=== PATIENT | female | born 1940 | race Caucasian/White ===

== ENCOUNTER 2017-06-17 09:37 | Inpatient (IN) | payer MEDICARE, OTHER ==
[~2017-06-17] VITALS: Ht 167.6 cm; Wt 56.6 kg
[~2017-06-17 09:37] MED LIST: COLO500C PO; ESTR2TAB PO; LEVO100T5 PO; MELA10TA PO; METF500T4 PO; PROG100C16 PO; TRAM50TA2 PO
[2017-06-17] MEDS ORDERED: VANCOMYCIN PMX 1GM/200ML 200 ML IV STA (09:39)
[2017-06-17] MEDS: D5%-0.45% NACL 1,000 ML IV SCH ×2 (09:54→19:14)
[2017-06-17] MEDS ORDERED: DIPHENHYDRAMINE 50 MG CAPSULE PO PRN (10:00)
[2017-06-17] MEDS ORDERED: LORazepam 2 MG/ML, 1ML IVPush PRN (10:00)
[2017-06-17] MEDS ORDERED: TRANEXAMIC ACID 100 MG/ML, 10ML IVPB ONE (10:00)
[2017-06-17] MEDS ORDERED: morphine SULFATE 10 MG/ML, 1ML IVPush PRN (10:00)
[2017-06-17] MEDS ORDERED: ZOLPIDEM 5MG TABLET PO PRN (10:00)
[2017-06-17] MEDS ORDERED: ACETAMINOPHEN 325 MG TABLET PO PRN ×2 (10:00→11:30)
[2017-06-17] MEDS ORDERED: LACTATED RINGERS 1,000 ML IV SCH (10:06)
[2017-06-17] MEDS ORDERED: hydrALAzine 20 MG/ML, 1ML ONE (10:25)
[2017-06-17] MEDS ORDERED: FENTANYL PF 250 MCG/5ML ONE (10:26)
[2017-06-17] MEDS ORDERED: ONDANSETRON 2MG/ML, 2ML ONE ×2 (10:56→12:56)
[2017-06-17] MEDS ORDERED: SUCCINYLCHOLINE 20 MG/ML, 10ML ONE (10:56)
[2017-06-17] MEDS ORDERED: NEOSTIGMINE 1 MG/ML, 10ML ONE (10:56)
[2017-06-17] MEDS ORDERED: DEXAMETHASONE 4 MG/ML, 1ML ONE (10:56)
[2017-06-17] MEDS ORDERED: METOPROLOL 1 MG/ML, 5ML ONE (10:56)
[2017-06-17] MEDS ORDERED: CEFAZOLIN 1,000 MG ONE (10:56)
[2017-06-17] MEDS ORDERED: GLYCOPYRROLATE 0.2MG/1ML, 5ML ONE (10:56)
[2017-06-17] MEDS ORDERED: ROCURONIUM 10 MG/ML ONE (10:56)
[2017-06-17] MEDS ORDERED: PROPOFOL 10 MG/ML, 20ML ONE (10:56)
[2017-06-17] MEDS ORDERED: HYDROmorphone 1 MG/ML, 1ML ONE ×2 (11:09→12:02)
[2017-06-17] MEDS ORDERED: hydrALAzine 20 MG/ML, 1ML IV PRN (11:30)
[2017-06-17] MEDS ORDERED: MIDAZOLAM 1 MG/ML, 2ML IV PRN (11:30)
[2017-06-17] MEDS ORDERED: METOPROLOL 1 MG/ML, 5ML IV PRN (11:30)
[2017-06-17] MEDS ORDERED: PROMETHAZINE 25 MG/ML, 1ML IV PRN (11:30)
[2017-06-17] MEDS ORDERED: ALBUTEROL SULFATE 2.5 MG/3 ML NPPB PRN (11:30)
[2017-06-17] MEDS ORDERED: MEPERIDINE/PF 25MG/0.5ML IVPush PRN (11:30)
[2017-06-17] MEDS ORDERED: OXYcodone 5 MG/5 ML ORAL.SOL UDC PO PRN (11:30)
[2017-06-17] MEDS ORDERED: EPHEDRINE 50 MG/ML, 1ML ONE (11:42)
[2017-06-17] MEDS ORDERED: FENTANYL PF 100 MCG/2ML ONE (12:02)
[2017-06-17] MEDS: FENTANYL PF 100 MCG/2ML IV PRN ×2 (12:19→12:30)
[2017-06-17] MEDS: HYDROmorphone 1 MG/ML, 1ML IV PRN ×3 (12:25→12:45)
[2017-06-17] MEDS ORDERED: OXYcodone 5 MG/5 ML ORAL.SOL UDC ONE (12:32)
[2017-06-17] MEDS ORDERED: ACETAMINOPHEN 650 MG/20.3 ML UDC ONE (12:32)
[2017-06-17] MEDS: ONDANSETRON 2MG/ML, 2ML IVPush PRN (12:58)
[2017-06-17] MEDS ORDERED: TRANEXAMIC ACID 1,000 MG in SODIUM CHLORIDE 0.9% 100 ML IV ONE (14:30)
[2017-06-17] MEDS ORDERED: PROMETHAZINE 25 MG/ML, 1ML IM ONE (15:30)
[2017-06-17] MEDS: metFORMIN 500 MG TABLET PO SCH (17:55)
[2017-06-17] MEDS: CEFAZOLIN PMX 1GM/50ML 50 ML IVPB SCH (18:48)
[2017-06-17 19:18] VITALS: BP 127/70
[2017-06-17] MEDS ORDERED: MELATONIN 5 MG TABLET PO SCH (21:00)
[2017-06-17] MEDS: OXYcodone/APAP 7.5/325MG TABLET PO PRN (21:54)
[2017-06-18] VITALS: BP 122/54
[2017-06-18] MEDS: D5%-0.45% NACL 1,000 ML IV SCH ×4 (03:00→13:00)
[2017-06-18] MEDS: CEFAZOLIN PMX 1GM/50ML 50 ML IVPB SCH ×3 (03:28→14:11)
[2017-06-18] MEDS: OXYcodone/APAP 7.5/325MG TABLET PO PRN ×3 (04:42→14:11)
[2017-06-18] MEDS: ONDANSETRON 2MG/ML, 2ML IVPush PRN (04:53)
[2017-06-18] MEDS ORDERED: LEVOTHYROXINE 100 MCG TABLET PO SCH (06:00)
[2017-06-18 08:35] VITALS: BP 135/64
[2017-06-18] MEDS ORDERED: ESTRADIOL 2 MG TABLET PO SCH (09:00)
[2017-06-18] MEDS ORDERED: PROGESTERONE 100 MG CAPSULE PO SCH (09:00)
[2017-06-18] MEDS ORDERED: VANCOMYCIN PMX 1GM/200ML 200 ML IVPB ONE (10:00)
[2017-06-18] MEDS: metFORMIN 500 MG TABLET PO SCH (10:43)
[2017-06-18] MEDS ORDERED: OXYC-302 PO (14:56)
[2017-06-18 16:11] VITALS: BP 161/82
[2017-06-18] MEDS ORDERED: ASPIRIN 325 MG TABLET EC PO SCH (17:00)
[2017-06-18] MEDS ORDERED: DOCUSATE 100 MG CAPSULE PO SCH (21:00)
== END 2017-06-18 17:36 | disposition home or self-care (01) | DRG 470 ==
LOC: ORIP 09:37 → 4NOR 13:55
PROVIDERS: ADMIT Orthopaedic Surgery; ATTEND Orthopaedic Surgery
PROC: 0SR90JZ Replacement of Right Hip Joint with Synthetic Substitute, Open Approach (ICD-10-PCS; principal; 2017-06-17 11:30)
DX: M16.11 Unilateral primary osteoarthritis, right hip (principal); E03.9 Hypothyroidism, unspecified
CPT/HCPCS: 36415; 82962; 85018; 86850; 86900; C1713; J0171; J0690; J1100; J1170; J1885; J2405; J2550; J2704; J2710; J2795; J3010; J3370; J3490; C1776; J0330; J0360; J7120

== ENCOUNTER 2018-02-05 14:17 | Inpatient (IN) | payer MEDICARE, OTHER ==
[~2018-02-05] VITALS: Ht 167.6 cm; Wt 68.4 kg
[~2018-02-05 14:17] MED LIST changes: +OXYC-302 PO
[2018-02-05] MEDS ORDERED: ALTEPLASE 1 MG/ML ONE (14:40)
[2018-02-05 14:59] LABS: BASOPHILS # (AUTO) 0.03 x10^3/uL (0-0.1); BASOPHILS % (AUTO) 0 % (0-1); EOSINOPHILS # (AUTO) 0.19 x10^3/uL (0-0.4); EOSINOPHILS % (AUTO) 2 % (1-7); LYMPHOCYTES # (AUTO) 1.27 x10^3/uL (1-3.4); LYMPHOCYTES % (AUTO) 11 % (22-44); MD NO; MEAN PLATELET VOLUME 7.8 fL (7.4-10.4); MONOCYTES # (AUTO) 0.94 x10^3/uL (0.2-0.8); MONOCYTES % (AUTO) 8 % (2-9); NEUTROPHILS # (AUTO) 8.91 x10^3/uL (1.8-6.8); NEUTROPHILS % (AUTO) 79 % (42-75); PLATELET COUNT 394 x10^3/uL (130-400)
[2018-02-05] MEDS ORDERED: OMNIPAQUE 350 MG/ML, 100ML BOTTLE ONE (15:18)
[2018-02-05 15:24] LABS: INTERNATIONAL NORMALIZED RATIO 1.04 (0.93-1.1); PROTHROMBIN TIME 10.7 Seconds (9.6-11.5)
[2018-02-05] MEDS ORDERED: ALTEPLASE IV ONE ×2 (15:30)
[2018-02-05] MEDS ORDERED: SODIUM CHLORIDE FLUSH 10ML SYR IVF PRN (15:30)
[2018-02-05] MEDS ORDERED: LABETALOL 5MG/ML, 20ML ONE (16:37)
[2018-02-05] MEDS ORDERED: LABETALOL 5MG/ML, 20ML IVPush PRN (17:00)
[2018-02-05] MEDS ORDERED: PLEASE ENTER HEIGHT AND WEIGHT MC SCH (17:00)
[2018-02-05] MEDS ORDERED: ACETAMINOPHEN 650 MG/20.3 ML UDC PO PRN (17:30)
[2018-02-05] MEDS ORDERED: DOCUSATE 100 MG CAPSULE PO PRN (17:30)
[2018-02-05] MEDS ORDERED: BISACODYL 10 MG SUPP PR PRN (17:30)
[2018-02-05] MEDS ORDERED: POLYETHYLENE GLYCOL 17 GM PACKET PO PRN (17:30)
[2018-02-05] MEDS ORDERED: ASPI-496 PO (17:55)
[2018-02-05 17:57] VITALS: BP 176/91
[2018-02-05 18:07] VITALS: BP 161/73
[2018-02-05] MEDS: PLEASE ENTER HEIGHT AND WEIGHT MC SCH ×3 (19:00→22:48)
[2018-02-05] MEDS: ATORVASTATIN 80 MG TABLET PO SCH (22:47)
[2018-02-06] MEDS: PLEASE ENTER HEIGHT AND WEIGHT MC SCH ×3 (02:46→07:35)
[2018-02-06 04:00] VITALS: BP 144/61
[2018-02-06 04:33] LABS: BASOPHILS # (AUTO) 0.02 x10^3/uL (0-0.1); BASOPHILS % (AUTO) 0 % (0-1); EOSINOPHILS # (AUTO) 0.28 x10^3/uL (0-0.4); EOSINOPHILS % (AUTO) 2 % (1-7); LYMPHOCYTES # (AUTO) 1.42 x10^3/uL (1-3.4); LYMPHOCYTES % (AUTO) 12 % (22-44); MD NO; MEAN CORPUSCULAR HEMOGLOBIN 25.2 pg (27.0-34.8); MEAN CORPUSCULAR HGB CONC 31.9 g/dL (32.4-35.8); MEAN CORPUSCULAR VOLUME 79.1 fL (80-100); MEAN PLATELET VOLUME 7.9 fL (7.4-10.4); MONOCYTES # (AUTO) 1.16 x10^3/uL (0.2-0.8); MONOCYTES % (AUTO) 10 % (2-9); NEUTROPHILS # (AUTO) 8.75 x10^3/uL (1.8-6.8); NEUTROPHILS % (AUTO) 75 % (42-75); PLATELET COUNT 366 x10^3/uL (130-400); RED BLOOD COUNT 3.88 x10^6/uL (3.82-5.3); RED CELL DISTRIBUTION WIDTH 16.5 % (9.6-15.2)
[2018-02-06 04:43] LABS: ALBUMIN 3.2 g/dL (3.4-5.0); ANION GAP 8 mmol/L (5-15); CALCIUM 8.5 mg/dL (8.5-10.1); CHLORIDE 107 mmol/L (98-107)
[2018-02-06 04:49] LABS: ALANINE AMINOTRANSFERASE 16 U/L (12-78); ALKALINE PHOSPHATASE 68 U/L (45-117); BILIRUBIN,TOTAL 0.3 mg/dL (0.2-1.0); CHOL/HDL RATIO 5.5; CHOLESTEROL, TOTAL 208 mg/dL (140-239); CREATININE 0.98 mg/dL (0.55-1.02); HDL CHOL % 18 % (28-40); HDL CHOLESTEROL (DIRECT) 38 mg/dL (40-60); LDL CHOLESTEROL,CALCULATED 125 mg/dL (54-169); LDL/HDL RATIO 3.3 (0.5-3.0); TOTAL PROTEIN 6.6 g/dL (6.4-8.2); TRIGLYCERIDES 226 mg/dL (50-200); VLDL CHOLESTEROL 45 mg/dL (0-25)
[2018-02-06] MEDS: LEVOTHYROXINE 100 MCG TABLET PO SCH (06:04)
[2018-02-06] MEDS: ACETAMINOPHEN 325 MG TABLET PO PRN (10:15)
[2018-02-06] MEDS ORDERED: ONDANSETRON 2MG/ML, 2ML ONE (11:04)
[2018-02-06] MEDS: ONDANSETRON 2MG/ML, 2ML IVPush PRN ×2 (11:08→18:57)
[2018-02-06] MEDS: ATORVASTATIN 80 MG TABLET PO SCH (20:25)
[2018-02-07 04:00] VITALS: BP 155/82
[2018-02-07] MEDS: LEVOTHYROXINE 100 MCG TABLET PO SCH (05:31)
[2018-02-07 06:16] LABS: MEAN CORPUSCULAR VOLUME 78.1 fL (80-100); RED BLOOD COUNT 3.95 x10^6/uL (3.82-5.3)
[2018-02-07 06:17] LABS: RED CELL DISTRIBUTION WIDTH 16.2 % (9.6-15.2)
[2018-02-07 06:19] LABS: CHLORIDE 105 mmol/L (98-107)
[2018-02-07 07:06] LABS: BASOPHILS # (AUTO) 0.01 x10^3/uL (0-0.1); BASOPHILS % (AUTO) 0 % (0-1); EOSINOPHILS # (AUTO) 0.04 x10^3/uL (0-0.4); EOSINOPHILS % (AUTO) 0 % (1-7); LYMPHOCYTES # (AUTO) 1.21 x10^3/uL (1-3.4); LYMPHOCYTES % (AUTO) 8 % (22-44); MD NO; MEAN CORPUSCULAR HEMOGLOBIN 24.9 pg (27.0-34.8); MEAN CORPUSCULAR HGB CONC 31.6 g/dL (32.4-35.8); MEAN CORPUSCULAR VOLUME 78.7 fL (80-100); MEAN PLATELET VOLUME 7.9 fL (7.4-10.4); MONOCYTES # (AUTO) 1.35 x10^3/uL (0.2-0.8); MONOCYTES % (AUTO) 9 % (2-9); NEUTROPHILS # (AUTO) 13.03 x10^3/uL (1.8-6.8); NEUTROPHILS % (AUTO) 83 % (42-75); PLATELET COUNT 392 x10^3/uL (130-400); RED BLOOD COUNT 4.11 x10^6/uL (3.82-5.3); RED CELL DISTRIBUTION WIDTH 16.4 % (9.6-15.2)
[2018-02-07 07:32] LABS: ALANINE AMINOTRANSFERASE 14 U/L (12-78); ALBUMIN 3.1 g/dL (3.4-5.0); ALKALINE PHOSPHATASE 74 U/L (45-117); BILIRUBIN,TOTAL 0.7 mg/dL (0.2-1.0); CALCIUM 8.4 mg/dL (8.5-10.1); CREATININE 0.96 mg/dL (0.55-1.02); TOTAL PROTEIN 7.1 g/dL (6.4-8.2)
[2018-02-07 08:38] LABS: ANION GAP 11 mmol/L (5-15)
[2018-02-07 08:51] LABS: FOLATE LEVEL 10.1 ng/mL (3.1-17.5); THYROID STIMULATING HORMONE 0.85 mIU/L (0.358-3.740)
[2018-02-07 09:05] VITALS: BP 149/86
[2018-02-07] MEDS: CLOPIDOGREL 75 MG TABLET PO SCH (12:06)
[2018-02-07] MEDS ORDERED: LIDOCAINE 2%, 20ML ONE (12:52)
[2018-02-07 19:58] VITALS: BP 185/89
[2018-02-07] MEDS: ATORVASTATIN 80 MG TABLET PO SCH (20:15)
[2018-02-07 20:17] LABS: HEMOGLOBIN A1C 6.6 % (4.2-6.3)
[2018-02-07 21:45] VITALS: BP 169/80
[2018-02-08 00:14] VITALS: BP 173/76
[2018-02-08] MEDS: ACETAMINOPHEN 325 MG TABLET PO PRN (00:19)
[2018-02-08] MEDS: ONDANSETRON 2MG/ML, 2ML IVPush PRN (00:37)
[2018-02-08] MEDS: TEMAZEPAM 15 MG CAPSULE PO PRN (01:16)
[2018-02-08 05:25] LABS: MEAN CORPUSCULAR HEMOGLOBIN 24.8 pg (27.0-34.8); MEAN CORPUSCULAR HGB CONC 31.5 g/dL (32.4-35.8); MEAN CORPUSCULAR VOLUME 78.9 fL (80-100); MEAN PLATELET VOLUME 7.6 fL (7.4-10.4); PLATELET COUNT 394 x10^3/uL (130-400); RED BLOOD COUNT 3.93 x10^6/uL (3.82-5.3); RED CELL DISTRIBUTION WIDTH 16.3 % (9.6-15.2)
[2018-02-08] MEDS: LEVOTHYROXINE 100 MCG TABLET PO SCH (05:30)
[2018-02-08 05:38] LABS: ALBUMIN 2.9 g/dL (3.4-5.0); ANION GAP 6 mmol/L (5-15); CHLORIDE 102 mmol/L (98-107); CREATININE 0.96 mg/dL (0.55-1.02)
[2018-02-08 06:04] LABS: BASOPHILS # (AUTO) 0.07 x10^3/uL (0-0.1); BASOPHILS % (AUTO) 0 % (0-1); EOSINOPHILS # (AUTO) 0.01 x10^3/uL (0-0.4); EOSINOPHILS % (AUTO) 0 % (1-7); LYMPHOCYTES # (AUTO) 1.17 x10^3/uL (1-3.4); LYMPHOCYTES % (AUTO) 6 % (22-44); MD SCAN; MONOCYTES # (AUTO) 1.72 x10^3/uL (0.2-0.8); MONOCYTES % (AUTO) 9 % (2-9); NEUTROPHILS # (AUTO) 15.74 x10^3/uL (1.8-6.8); NEUTROPHILS % (AUTO) 84 % (42-75)
[2018-02-08 08:06] VITALS: BP 168/76
[2018-02-08] MEDS ORDERED: DOXYCYCLINE 100MG TABLET PO SCH (10:00)
[2018-02-08] MEDS ORDERED: AMPICILLIN/SULBACTAM 3 GM in SODIUM CHLORIDE 0.9% 100 ML IV SCH (10:00)
[2018-02-08] MEDS: INDOMETHACIN 25 MG CAPSULE PO SCH ×3 (13:20→21:09)
[2018-02-08] MEDS: CLOPIDOGREL 75 MG TABLET PO SCH (13:20)
[2018-02-08 14:09] VITALS: BP 160/71
[2018-02-08 14:57] LABS: MICROSCOPIC AUTO
[2018-02-08 15:02] LABS: CULTURE INDICATED? YES
[2018-02-08] MEDS: OMEPRAZOLE 20 MG CAPSULE.DR PO SCH (16:29)
[2018-02-08] MEDS: AMLODIPINE 5 MG TABLET PO SCH ×2 (16:30→21:09)
[2018-02-08] MEDS: IRON SUCROSE COMPLEX 100MG/5ML IV SCH (16:30)
[2018-02-08 19:33] VITALS: BP 165/71
[2018-02-08 19:46] VITALS: BP 148/85
[2018-02-08] MEDS: ATORVASTATIN 80 MG TABLET PO SCH (21:09)
[2018-02-08] MEDS: CEFTRIAXONE PMX 1GM/50ML 50 ML IV SCH (21:46)
[2018-02-09 00:47] VITALS: BP 155/75
[2018-02-09] MEDS: LEVOTHYROXINE 100 MCG TABLET PO SCH (05:44)
[2018-02-09 06:55] VITALS: BP 155/74
[2018-02-09] MEDS: AMLODIPINE 5 MG TABLET PO SCH ×2 (08:04→21:29)
[2018-02-09] MEDS: INDOMETHACIN 25 MG CAPSULE PO SCH ×3 (08:04→21:29)
[2018-02-09] MEDS: OMEPRAZOLE 20 MG CAPSULE.DR PO SCH (08:05)
[2018-02-09] MEDS: CLOPIDOGREL 75 MG TABLET PO SCH (08:05)
[2018-02-09] MEDS: IRON SUCROSE COMPLEX 100MG/5ML IV SCH (08:05)
[2018-02-09 14:10] VITALS: BP 165/88
[2018-02-09 15:59] LABS: ALBUMIN 2.9 g/dL (3.4-5.0); ANION GAP 7 mmol/L (5-15); CALCIUM 8.4 mg/dL (8.5-10.1); CHLORIDE 101 mmol/L (98-107); CREATININE 0.93 mg/dL (0.55-1.02)
[2018-02-09 16:00] LABS: BASOPHILS # (AUTO) 0.02 x10^3/uL (0-0.1); BASOPHILS % (AUTO) 0 % (0-1); EOSINOPHILS # (AUTO) 0.22 x10^3/uL (0-0.4); EOSINOPHILS % (AUTO) 2 % (1-7); LYMPHOCYTES # (AUTO) 1.07 x10^3/uL (1-3.4); LYMPHOCYTES % (AUTO) 8 % (22-44); MD NO; MEAN CORPUSCULAR HEMOGLOBIN 24.1 pg (27.0-34.8); MEAN CORPUSCULAR VOLUME 77.9 fL (80-100); MEAN PLATELET VOLUME 7.7 fL (7.4-10.4); MONOCYTES # (AUTO) 1.11 x10^3/uL (0.2-0.8); MONOCYTES % (AUTO) 9 % (2-9); NEUTROPHILS # (AUTO) 10.38 x10^3/uL (1.8-6.8); NEUTROPHILS % (AUTO) 81 % (42-75); PLATELET COUNT 418 x10^3/uL (130-400); RED BLOOD COUNT 3.99 x10^6/uL (3.82-5.3); RED CELL DISTRIBUTION WIDTH 16.1 % (9.6-15.2)
[2018-02-09] MEDS: ONDANSETRON 2MG/ML, 2ML IVPush PRN (16:58)
[2018-02-09 18:40] VITALS: BP 168/81
[2018-02-09] MEDS: TEMAZEPAM 15 MG CAPSULE PO PRN (21:29)
[2018-02-09] MEDS: ATORVASTATIN 80 MG TABLET PO SCH (21:29)
[2018-02-09] MEDS: CEFTRIAXONE PMX 1GM/50ML 50 ML IV SCH (21:29)
[2018-02-10 02:04] VITALS: BP 133/71
[2018-02-10 05:15] LABS: BASOPHILS # (AUTO) 0.05 x10^3/uL (0-0.1); BASOPHILS % (AUTO) 1 % (0-1); EOSINOPHILS # (AUTO) 0.38 x10^3/uL (0-0.4); EOSINOPHILS % (AUTO) 3 % (1-7); LYMPHOCYTES # (AUTO) 1.04 x10^3/uL (1-3.4); LYMPHOCYTES % (AUTO) 9 % (22-44); MD NO; MEAN CORPUSCULAR HGB CONC 31.5 g/dL (32.4-35.8); MEAN CORPUSCULAR VOLUME 79.1 fL (80-100); MEAN PLATELET VOLUME 7.9 fL (7.4-10.4); MONOCYTES # (AUTO) 1.44 x10^3/uL (0.2-0.8); MONOCYTES % (AUTO) 12 % (2-9); NEUTROPHILS # (AUTO) 8.89 x10^3/uL (1.8-6.8); NEUTROPHILS % (AUTO) 75 % (42-75); PLATELET COUNT 403 x10^3/uL (130-400); RED BLOOD COUNT 3.84 x10^6/uL (3.82-5.3); RED CELL DISTRIBUTION WIDTH 16.1 % (9.6-15.2)
[2018-02-10 05:26] LABS: ANION GAP 8 mmol/L (5-15); CALCIUM 8.2 mg/dL (8.5-10.1); CHLORIDE 103 mmol/L (98-107)
[2018-02-10 05:29] LABS: CREATININE 0.82 mg/dL (0.55-1.02)
[2018-02-10] MEDS: LEVOTHYROXINE 100 MCG TABLET PO SCH (05:43)
[2018-02-10 07:00] VITALS: BP 136/68
[2018-02-10] MEDS: CLOPIDOGREL 75 MG TABLET PO SCH (10:31)
[2018-02-10] MEDS: OMEPRAZOLE 20 MG CAPSULE.DR PO SCH (10:31)
[2018-02-10] MEDS: AMLODIPINE 5 MG TABLET PO SCH ×2 (10:31→21:43)
[2018-02-10] MEDS: INDOMETHACIN 25 MG CAPSULE PO SCH ×3 (10:31→21:43)
[2018-02-10] MEDS: IRON SUCROSE COMPLEX 100MG/5ML IV SCH (10:31)
[2018-02-10 12:42] VITALS: BP 140/71
[2018-02-10] MEDS ORDERED: AMLO5TAB2 PO (12:56)
[2018-02-10] MEDS ORDERED: LEVO100T PO (12:56)
[2018-02-10] MEDS ORDERED: CLOP75TA PO (12:56)
[2018-02-10] MEDS ORDERED: ATOR-2 PO (12:56)
[2018-02-10 19:58] VITALS: BP 154/77
[2018-02-10] MEDS: ATORVASTATIN 80 MG TABLET PO SCH (21:43)
[2018-02-10] MEDS: CEFTRIAXONE PMX 1GM/50ML 50 ML IV SCH (21:44)
[2018-02-11 01:48] VITALS: BP 180/81
[2018-02-11] MEDS: LEVOTHYROXINE 100 MCG TABLET PO SCH (05:08)
[2018-02-11 05:26] LABS: BASOPHILS # (AUTO) 0.05 x10^3/uL (0-0.1); BASOPHILS % (AUTO) 0 % (0-1); EOSINOPHILS # (AUTO) 0.33 x10^3/uL (0-0.4); EOSINOPHILS % (AUTO) 3 % (1-7); LYMPHOCYTES # (AUTO) 1.34 x10^3/uL (1-3.4); LYMPHOCYTES % (AUTO) 13 % (22-44); MD NO; MEAN CORPUSCULAR HEMOGLOBIN 24.9 pg (27.0-34.8); MEAN CORPUSCULAR HGB CONC 31.7 g/dL (32.4-35.8); MEAN CORPUSCULAR VOLUME 78.6 fL (80-100); MEAN PLATELET VOLUME 7.9 fL (7.4-10.4); MONOCYTES # (AUTO) 1.23 x10^3/uL (0.2-0.8); MONOCYTES % (AUTO) 12 % (2-9); NEUTROPHILS # (AUTO) 7.58 x10^3/uL (1.8-6.8); NEUTROPHILS % (AUTO) 72 % (42-75); PLATELET COUNT 452 x10^3/uL (130-400); RED BLOOD COUNT 4.08 x10^6/uL (3.82-5.3); RED CELL DISTRIBUTION WIDTH 16.6 % (9.6-15.2)
[2018-02-11 05:33] LABS: ALBUMIN 2.7 g/dL (3.4-5.0); ANION GAP 9 mmol/L (5-15); CALCIUM 8.1 mg/dL (8.5-10.1); CHLORIDE 106 mmol/L (98-107)
[2018-02-11 05:37] LABS: ALANINE AMINOTRANSFERASE 15 U/L (12-78); ALKALINE PHOSPHATASE 80 U/L (45-117); BILIRUBIN,TOTAL 0.2 mg/dL (0.2-1.0)
[2018-02-11 08:00] VITALS: BP 174/84
[2018-02-11] MEDS: CLOPIDOGREL 75 MG TABLET PO SCH (08:17)
[2018-02-11] MEDS: AMLODIPINE 5 MG TABLET PO SCH (08:17)
[2018-02-11] MEDS: INDOMETHACIN 25 MG CAPSULE PO SCH (08:17)
[2018-02-11] MEDS: IRON SUCROSE COMPLEX 100MG/5ML IV SCH (08:17)
[2018-02-11] MEDS: OMEPRAZOLE 20 MG CAPSULE.DR PO SCH (08:17)
[2018-02-11] MEDS: ACETAMINOPHEN 325 MG TABLET PO PRN (12:58)
[2018-02-11 14:16] VITALS: BP 168/79
== END 2018-02-11 16:44 | DRG 62 ==
LOC: EDBD 14:17 → EDSEX 14:17 → ED 15:21 → MERGE 15:22 → EDIP 15:22 → ED 15:48 → CCU 15:59 → 4EST 02-06 19:08
PROVIDERS: ADMIT Hospitalist; ATTEND Hospitalist
PROC: 3E04317 Introduction of Other Thrombolytic into Central Vein, Percutaneous Approach (ICD-10-PCS; 2018-02-05)
PROC: 0S9D3ZZ Drainage of Left Knee Joint, Percutaneous Approach (ICD-10-PCS; principal; 2018-02-07)
DX: I63.511 Cerebral infarction due to unspecified occlusion or stenosis of right middle cerebral artery (principal); G81.94 Hemiplegia, unspecified affecting left nondominant side; I50.30 Unspecified diastolic (congestive) heart failure; N39.0 Urinary tract infection, site not specified; E11.9 Type 2 diabetes mellitus without complications; Z92.82 Status post administration of tPA (rtPA) in a different facility within the last 24 hours prior to admission to current facility; E03.9 Hypothyroidism, unspecified; Z79.890 Hormone replacement therapy; Z91.018 Allergy to other foods; G89.29 Other chronic pain; M54.9 Dorsalgia, unspecified; H54.61 Unqualified visual loss, right eye, normal vision left eye; I11.0 Hypertensive heart disease with heart failure; M10.9 Gout, unspecified; M19.90 Unspecified osteoarthritis, unspecified site; R29.713 NIHSS score 13; H51.8 Other specified disorders of binocular movement; B96.20 Unspecified Escherichia coli [E. coli] as the cause of diseases classified elsewhere; D50.9 Iron deficiency anemia, unspecified; E78.1 Pure hyperglyceridemia; E78.5 Hyperlipidemia, unspecified; W18.39XA Other fall on same level, initial encounter; Y93.89 Activity, other specified; Y92.090 Kitchen in other non-institutional residence as the place of occurrence of the external cause; Y99.8 Other external cause status; Z79.02 Long term (current) use of antithrombotics/antiplatelets; Z79.82 Long term (current) use of aspirin; Z79.899 Other long term (current) drug therapy
CPT/HCPCS: 20611; 36415; 70450; 70496; 70498; 70551; 71045; 71250; 74018; 80047; 80048; 80053; 80061; 81001; 82040; 82607; 82728; 82746; 82962; 83036; 83540; 83550; 83735; 84100; 84443; 85025; 85610; 85730; 85810; 87040; 87077; 87081; 87086; 87186; 89050; 89060; 93005; 93306; 99291; J0696; J1756; J2405; J3490; Q9967; 92523-GN

== ENCOUNTER → 2020-10-03 | Outpatient (CLI) | payer MEDICARE, OTHER ==
[~2020-10-03] MED LIST changes: +ACET650T10 PO; +AMLO-150 PO; +ASCO500T8 PO; +ASPI-496 PO; +ASPI81TA45 PO; +ATOR-2 PO; +CHOL10003 PO; +CLOP75TA PO; +LEVO100T PO; +LISI1TAB23 PO; +METF500T17 PO; -METF500T4 PO; -OXYC-302 PO; +OXYC1TAB14 PO; +TURM500C4 PO; +VITA1TAB19 PO; +[UNRECOGNIZED DRUG - OTHER] PO
[2020-10-03 15:14] LABS: ALBUMIN 4.3 g/dL (3.4-5.0); ANION GAP 7 mmol/L (5-15); CALCIUM 10.2 mg/dL (8.5-10.1); CHLORIDE 105 mmol/L (98-107)
[2020-10-03 15:20] LABS: BASOPHILS % (AUTO) 1 % (0-1); EOSINOPHILS % (AUTO) 2 % (1-7); LYMPHOCYTES % (AUTO) 17 % (22-44); MEAN CORPUSCULAR HEMOGLOBIN 22.2 pg (27.0-34.8); MEAN PLATELET VOLUME 8.1 fL (7.4-10.4); MONOCYTES % (AUTO) 10 % (2-9); NEUTROPHILS % (AUTO) 71 % (42-75); PLATELET COUNT 499 x10^3/uL (130-400); RED BLOOD COUNT 5.33 x10^6/uL (3.82-5.3); RED CELL DISTRIBUTION WIDTH 18.7 % (9.6-15.2)
[2020-10-03 15:22] LABS: ALANINE AMINOTRANSFERASE 20 U/L (12-78); ALKALINE PHOSPHATASE 90 U/L (45-117); BILIRUBIN,TOTAL 0.3 mg/dL (0.2-1.0); TOTAL PROTEIN 8.3 g/dL (6.4-8.2)
[2020-10-03 15:22] LABS: MICROSCOPIC INDICATED
[2020-10-03 15:23] LABS: MD NO; MEAN CORPUSCULAR HGB CONC 30.9 g/dL (32.4-35.8)
== END | disposition home or self-care (01) ==
LOC: STAR 13:06
PROVIDERS: ATTEND Orthopaedic Surgery
DX: Z01.812 Encounter for preprocedural laboratory examination (principal); Z20.822 Contact with and (suspected) exposure to COVID-19; M17.12 Unilateral primary osteoarthritis, left knee; I45.10 Unspecified right bundle-branch block
CPT/HCPCS: 80053; 81001; 85025; 87077; 87081; 87086; 87147; 87635; 87806; 93005; G0475